=== PATIENT | male | born 1960 | race Caucasian/White ===

== ENCOUNTER 2019-05-07 20:54 | Emergency (ER) | payer SELFPAY ==
[~2019-05-07] VITALS: Ht 182.9 cm; Wt 99.3 kg
[~2019-05-07 20:54] MED LIST: ALBU90OI INH; ASPI325 PO; ASPI81CH PO; ATOR40TA PO; Amitriptyline100 MG PO; BACL20 PO; CLARISPRAY9.9 ML; CODGUAEL PO; CYCL10 PO; DOXY100 PO; GABA600 PO; IBUP800 PO; LISHYD1012 PO; LISI20 PO; LOVA20 PO; Lacri-Lube S.O3.5 GM LEFTEYE; METF500 PO; MULVITMIND PO; Norco 5-325 Ta1 EACH PO; PROM25 PO; Prednisone20 MG PO; TRAM50 PO; Zovirax200 MG PO; [UNRECOGNIZED DRUG - OTHER]
== END 2019-05-07 22:00 | disposition left against medical advice (07) ==
LOC: ER 20:54
DX: R55 Syncope and collapse (principal); Z79.899 Other long term (current) drug therapy; Z79.84 Long term (current) use of oral hypoglycemic drugs; Z79.82 Long term (current) use of aspirin; F17.200 Nicotine dependence, unspecified, uncomplicated
CPT/HCPCS: 93005; 93010; 96360; 99284-25; J7030

== ENCOUNTER 2020-01-08 11:36 | Emergency (ER) | payer OTHER ==
[~2020-01-08] VITALS: Ht 182.9 cm; Wt 104.3 kg
[2020-01-08] MEDS ORDERED: Norco 5-325 Ta1 EACH PO (11:55)
== END 2020-01-08 12:17 | disposition home or self-care (01) ==
LOC: ER 11:36
DX: K40.90 Unilateral inguinal hernia, without obstruction or gangrene, not specified as recurrent (principal); E11.9 Type 2 diabetes mellitus without complications; F17.200 Nicotine dependence, unspecified, uncomplicated; Z79.899 Other long term (current) drug therapy; Z79.84 Long term (current) use of oral hypoglycemic drugs; Z79.82 Long term (current) use of aspirin
CPT/HCPCS: 99283; A9270-GY

== ENCOUNTER 2020-02-19 09:04 | Day surgery (SDC) | payer OTHER ==
[~2020-02-19] VITALS: Ht 182.9 cm; Wt 90.2 kg
--- NOTE | 2020-02-19 10:56 | NUR ---
Ambulatory in Day Surgery. History, Chart, Medications and Allergies reviewed before start of procedure.Patient confirms NPO status and agrees with scheduled surgery. Patient reports completing Chlorhexadine shower X2 prior to admission to hospital.Surgical site prepped with 2% Chlorhexidine cloth wipe. Patient States Post-Procedure ride home has been arranged.
--- NOTE | 2020-02-19 10:58 | NUR ---
student rn stevo assisting in care. agree with his charting and care.
--- NOTE | 2020-02-19 13:45 | NUR ---
INCISION PT HAS A DRSG IN PLACE THAT IS C/D/I PT HAVING MILD PAIN MEDICATED WITH 1 NORCO PT DENIES NAUSEA
--- NOTE | 2020-02-19 14:12 | NUR ---
DISCHARGE DRSG C/D/I ADULT ATHLETIC SUPPORT GIVEN TP PT TO WEAR IV DCD INTACT. Discharge instructions reviewed with patient. Patient verbalizes understanding. Copy given to patient to take home. Dressing to procedure site clean, dry, intact with no visible drainage, swelling, erythema or bruising noted. Patient States Post-Procedure ride home has been arranged. Discharged via wheelchair to private car for ride home.
== END 2020-02-19 14:00 | disposition home or self-care (01) ==
LOC: ORSCMMR 09:04 → ORD 10:30 → ORSCMMR 10:30
PROVIDERS: Surgery
PROC: 0YU50JZ Supplement Right Inguinal Region with Synthetic Substitute, Open Approach (ICD-10-PCS; principal; 2020-02-19 10:30)
DX: K40.90 Unilateral inguinal hernia, without obstruction or gangrene, not specified as recurrent (principal); I10 Essential (primary) hypertension; F17.210 Nicotine dependence, cigarettes, uncomplicated; E11.9 Type 2 diabetes mellitus without complications; E78.00 Pure hypercholesterolemia, unspecified; Z79.899 Other long term (current) drug therapy; Z79.84 Long term (current) use of oral hypoglycemic drugs
CPT/HCPCS: 82947; A9270-GY; C1781; J0690; J1100; J1885; J2250; J2405; J2704; J3010; J7120

== ENCOUNTER 2021-05-20 16:31 | Inpatient (IN) | payer OTHER ==
[~2021-05-20] VITALS: Ht 182.9 cm; Wt 81.7 kg
[~2021-05-20 16:31] MED LIST changes: -ASPI81CH PO; +Aspir 8181 MG PO
[2021-05-20 17:52] LABS: BASOPHILS ABSOLUTE AUTO 0.02 K/mm3 (0.00-0.23); BASOPHILS PERCENT AUTO 0 % (0-2); EOSINOPHILS ABSOLUTE AUTO 0.07 K/mm3 (0.00-0.68); EOSINOPHILS PERCENT AUTO 1 % (0-6); Hematocrit 34.7 % (37.0-53.0); Hemoglobin 11.3 g/dL (13.5-17.5); IMMATURE GRAN ABSOLUTE AUTO 0.04 K/mm3 (0.00-0.10); IMMATURE GRAN PERCENT AUTO 0 % (0-1); LYMPHOCYTES ABSOLUTE AUTO 1.53 K/mm3 (0.84-5.20); LYMPHOCYTES PERCENT AUTO 12 % (21-46); MONOCYTES ABSOLUTE AUTO 1.16 K/mm3 (0.16-1.47); MONOCYTES PERCENT AUTO 9 % (4-13); Mean Corpuscular HGB 28.5 pg (26.0-34.0); Mean Corpuscular HGB Conc 32.6 g/dL (31.5-36.5); Mean Corpuscular Volume 87 fL (80-100); Mean Platelet Volume 10.1 fL (9.1-12.4); NEUTROPHILS ABSOLUTE AUTO 10.35 K/mm3 (1.96-9.15); NEUTROPHILS PERCENT AUTO 79 % (41-73); Platelet Count 325 K/mm3 (150-400); RDW Coefficient Variation 12.9 % (11.7-14.2); RDW Standard Deviation 41.8 fL (35.1-46.3); Red Blood Cell Count 3.97 M/mm3 (4.30-5.90); White Blood Cell Count 13.17 K/mm3 (4.00-11.30)
[2021-05-20 18:21] LABS: Alanine Aminotransfer (ALT/SGP 51 U/L (12-78); Albumin, Blood 3.4 g/dL (3.4-5.0); Alk Phos 78 U/L (50-136); Anion Gap 5 mmol/L (6-16); Aspartate Aminotrans (AST/SGOT 39 U/L (12-37); Bilirubin, Total 1.1 mg/dL (0.1-1.0); Blood Urea Nitrogen 20 mg/dL (8-24); Bun/Creatinine Ratio 43.2 (12.0-20.0); CO2, Blood 28 mmol/L (21-32); Chloride, Blood 105 mmol/L (98-108); Creatinine, Blood 0.46 mg/dL (0.60-1.20); Globulin, Blood 3.5 g/dL (2.2-4.0); Glomerular Filtration Rate >60 (60-); Glucose, Blood 103 mg/dL (70-99); Potassium, Blood 3.3 mmol/L (3.5-5.5); Sodium, Blood 138 mmol/L (136-145); Total Protein, Blood 6.9 g/dL (6.4-8.2); Troponin I <0.015 ng/mL (0.000-0.040)
[2021-05-20 20:44] LABS: U Amphetamine Screen DETECTED; U Barbituate Screen Not Detected; U Benzodiazapine Screen Not Detected; U Buprenorphine Screen Not Detected; U Cannabinoids Screen DETECTED; U Cocaine Screen Not Detected; U Methadone Screen Not Detected; U Methamphetamine Screen DETECTED; U Opiates Screen Not Detected; U Oxycodone Screen Not Detected; U Phencyclidine Screen Not Detected; U Propoxyphene Screen Not Detected
[2021-05-20 20:51] LABS: SARS-Cov-2 (COVID-19) PCR, MMC NEGATIVE (NEGATIVE)
[2021-05-20] MEDS ORDERED: BACL20 PO (21:12)
== END 2021-05-20 23:32 | disposition left against medical advice (07) | DRG 872 ==
LOC: ER 16:31 → ERHOLD 20:42
PROVIDERS: Physician Assistant; ADMIT Family Medicine
PROC: 0H9DXZZ Drainage of Right Lower Arm Skin, External Approach (ICD-10-PCS; principal; 2021-05-20)
DX: A41.9 Sepsis, unspecified organism (principal); L03.113 Cellulitis of right upper limb; L02.413 Cutaneous abscess of right upper limb; E87.6 Hypokalemia; E78.5 Hyperlipidemia, unspecified; E86.0 Dehydration; R29.6 Repeated falls; I10 Essential (primary) hypertension; E11.42 Type 2 diabetes mellitus with diabetic polyneuropathy; F12.90 Cannabis use, unspecified, uncomplicated; F15.90 Other stimulant use, unspecified, uncomplicated; F10.10 Alcohol abuse, uncomplicated; D64.9 Anemia, unspecified; F17.210 Nicotine dependence, cigarettes, uncomplicated; Z20.822 Contact with and (suspected) exposure to COVID-19; Z98.890 Other specified postprocedural states; Z59.0 Homelessness; Z79.899 Other long term (current) drug therapy; Z79.82 Long term (current) use of aspirin; Z79.84 Long term (current) use of oral hypoglycemic drugs; Z98.52 Vasectomy status
CPT/HCPCS: 36415; 70450; 71045; 73201; 80053; 83605; 84484; 85025; 87040; 93005; 93010; 96361; 96365; 99285-25; A9270; J0690; J7030; Q9967; U0004

== ENCOUNTER 2021-08-09 19:15 | Emergency (ER) | payer OTHER ==
[~2021-08-09] VITALS: Ht 182.9 cm; Wt 81.7 kg
[2021-08-09] MEDS ORDERED: DOXY100 PO (22:04)
== END 2021-08-09 22:24 | disposition home or self-care (01) ==
LOC: ER 19:15
DX: L03.116 Cellulitis of left lower limb (principal); E11.40 Type 2 diabetes mellitus with diabetic neuropathy, unspecified; F17.210 Nicotine dependence, cigarettes, uncomplicated; Z79.82 Long term (current) use of aspirin; Z79.899 Other long term (current) drug therapy; Z79.84 Long term (current) use of oral hypoglycemic drugs
CPT/HCPCS: 93971; 99284-25; A9270